=== PATIENT | male | born 1965 | race African-American/Black ===

== ENCOUNTER → 2019-01-01 | Outpatient (CLI) | payer OTHER ==
[~2019-01-01] MED LIST: GADOBUTROL 10 MMOL/10 ML VIAL IV ONE; NEO/5DRO OP
--- NOTE | 2019-01-01 16:11 | KCIC ---
EXAMINATION: Magnetic resonance imaging (MRI) of the brain and brainstem without and with contrast 01/01/2019 1:15 PM Magnetic resonance imaging (MRI) of the orbits with and without contrast HISTORY: Bilateral dacryoadenitis. Recent congestion and bilateral swelling. TECHNIQUE: Multiplanar multi-weighted MRI of the brain, brainstem and orbits was performed without and with intravenous contrast using the general brain protocol. Contrast information: 9 mL Gadolinium based contrast COMPARISON: None available. FINDINGS: The scalp and calvarium are normal. The superior sagittal sinus demonstrates normal venous flow. The corpus callosum is normal in shape and signal intensity. The posterior fossa is unremarkable. The pituitary and sella are normal. The brainstem and craniocervical junction are unremarkable. There is a cavum septum pellucidum with convex margins. Diffusion weighted images reveal no hyperintensities to suggest acute cerebral infarction. The susceptibility weighted sequences reveal no evidence of acute or chronic hemorrhage. The ventricles are normal in size and position without evidence of hydrocephalus. There are no areas of abnormal contrast enhancement. There is moderate to advanced mucosal thickening involving the frontal sinuses. Moderate mucosal thickening involving the ethmoid air cells. Moderate mucosal thickening is noted involving the maxillary sinuses. Globes are spherical and contour. Extraocular muscles are intact. No intraconal or extraconal mass is identified. Optic nerves are normal in appearance. Optic chiasm is intact. Lacrimal glands appear intact. No suspicious mass is identified along the nasal lacrimal duct. No evidence for dacryocystocele. IMPRESSION: 1. No evidence for acute or subacute ischemia. 2. No MRI findings to suggest cystic or solid mass involving the nasolacrimal apparatus. 3. Pansinus mucosal inflammatory changes somewhat sparing the sphenoid sinuses. Correlate for signs and symptoms of sinusitis. Electronically signed by: Janette Ardon MD (01/01/2019 4:06 PM) [facility]
== END | disposition home or self-care (01) ==
LOC: KCIC MRI 13:19
PROVIDERS: ATTEND Optometrist
DX: H04.003 Unspecified dacryoadenitis, bilateral lacrimal glands (principal)
CPT/HCPCS: 70543; 70553; A9585